=== PATIENT | female | born 1940 | race Caucasian/White ===

== ENCOUNTER 2017-10-28 06:42 | Inpatient (IN) | payer MEDICARE ==
[~2017-10-28] VITALS: Ht 152.4 cm; Wt 70.8 kg
[2017-10-28 06:46] VITALS: BP 141/62
--- NOTE | 2017-10-28 06:46 | NUR ---
77/F BIB grandaughter w c/o diarrhea, nausea and dizziness x5 days. Pt also c/o generalized weakness. Reports upper abd pain, BS active x4, abd soft, round, -tenderness. Denies vomiting, fever/chills. Denies CP/SOB. PMH: DM, HTN
--- NOTE | 2017-10-28 06:46 | NUR ---
PT AMBULATED TO ER BED 11
[2017-10-28] MEDS ORDERED: OMEP20TC12 PO (06:56)
[2017-10-28] MEDS ORDERED: DIT5 PO (06:56)
[2017-10-28] MEDS ORDERED: METO25TA PO (06:56)
[2017-10-28] MEDS ORDERED: ATOR40TA PO (06:56)
[2017-10-28] MEDS ORDERED: SITA100T8 PO (06:56)
[2017-10-28] MEDS ORDERED: BUDE1AER IH (06:56)
[2017-10-28] MEDS ORDERED: METF500T PO (06:56)
[2017-10-28] MEDS ORDERED: AMLO5TAB PO (06:56)
--- NOTE | 2017-10-28 07:00 | NUR ---
RECEIVED REPORT FROM VERNA RICHARDSON FOR CONTINUITY OF CARE
--- NOTE | 2017-10-28 07:00 | NUR ---
gave report to Sonja RICHARDSON
--- NOTE | 2017-10-28 08:08 | NUR ---
Patient being evaluated by physician at bedside.
[2017-10-28] MEDS ORDERED: NACL 0.9% 1,000 ML IV ONE (08:15)
[2017-10-28] MEDS ORDERED: LEVOFLOXACIN 500 MG/D5W PREMIX 100 ML IV ONE (08:15)
--- NOTE | 2017-10-28 08:54 | NUR ---
PT TO CT IN NO APEARENT DISTRESS WITH PLODDING MACHINE OPERATOR
--- NOTE | 2017-10-28 09:04 | NUR ---
PT BACK FROM CT IN NO APPARENT DISTRESS.
[2017-10-28 09:16] LABS: BASOPHILS % (AUTO) 0.3 % (0.0-2.0); EOSINOPHILS # (AUTO) 0.1 K/uL (0-0.4); EOSINOPHILS % (AUTO) 1.7 % (0.0-4.0); HEMATOCRIT 39.1 % (36-48); HEMOGLOBIN 13.3 g/dL (12.0-16.0); LYMPHOCYTES # (AUTO) 1.7 K/uL (2.5-16.5); LYMPHOCYTES % (AUTO) 20.3 % (20.5-51.1); MEAN CORPUSCULAR HEMOGLOBIN 30 pg (27-31); MEAN CORPUSCULAR HGB CONC 34 g/dL (33-37); MEAN CORPUSCULAR VOLUME 88.4 fL (80-94); MONOCYTES # (AUTO) 0.5 K/uL (0.8-1.0); MONOCYTES % (AUTO) 5.9 % (1.7-9.3); NEUTROPHILS % (AUTO) 71.8 % (42.2-75.2); PLATELET COUNT (AUTO) 190 K/uL (140-450); RED BLOOD CELL COUNT(AUTO) 4.42 MIL/uL (4.20-5.40); RED CELL DISTRIBUTION WIDTH 14.4 % (11.6-13.7); WHITE BLOOD COUNT (AUTO) 8.4 K/uL (4.8-10.8)
[2017-10-28 09:26] LABS: ANION GAP 14.4 (8-16); CARBON DIOXIDE 24.2 mmol/L (21-32); CHLORIDE 106 mmol/L (98-107); CREATININE 0.6 mg/dL (0.6-1.3); GLUCOSE 144 mg/dL (74-106); POTASSIUM 3.6 mmol/L (3.5-5.1); SODIUM SERUM 141 mmol/L (136-145); UREA NITROGEN, BLOOD 9 mg/dL (7-18)
[2017-10-28 09:31] LABS: APPEARANCE,URINE CLEAR (CLEAR); BILIRUBIN,URINE NEGATIVE (NEGATIVE); BLOOD, URINE NEGATIVE (NEGATIVE); COLOR,URINE YELLOW (YELLOW); LEUKOCYTE ESTERASE ,URINE NEGATIVE (NEGATIVE); NITRITE, URINE NEGATIVE (NEGATIVE); PH,URINE 5.5 (5.0-9.0); UGLUCOSE NEGATIVE (NEGATIVE)
[2017-10-28 09:32] LABS: ALBUMIN 3.8 g/dL (3.4-5.0); ASPARTATE AMINOTRANSFERASE 28 U/L (15-37); TOTAL BILIRUBIN 0.3 mg/dL (0.0-1.0)
[2017-10-28] MEDS: NACL 0.9% 1,000 ML IV SCH ×2 (10:09→20:09)
[2017-10-28] MEDS ORDERED: DOCUSATE SODIUM 100 MG GELCAP PO PRN (10:10)
[2017-10-28] MEDS ORDERED: HYDROcodone/APAP 7.5/325 MG 1 TAB PO PRN (10:10)
[2017-10-28] MEDS ORDERED: ONDANSETRON 4 MG/2 ML VIAL IM/IVP PRN (10:10)
[2017-10-28] MEDS ORDERED: MORPHINE SULFATE 2 MG/ML SYR IVP PRN (10:10)
[2017-10-28] MEDS ORDERED: ZOLPIDEM 5 MG TAB PO PRN (10:10)
[2017-10-28] MEDS ORDERED: ACETAMINOPHEN 325 MG TAB PO PRN (10:10)
[2017-10-28] MEDS ORDERED: LORazepam 0.5 MG TAB PO PRN (10:10)
--- NOTE | 2017-10-28 10:19 | NUR ---
DR BRAUN AT BEDSIDE
--- NOTE | 2017-10-28 10:30 | NUR ---
X RAY AT [facility], S
[2017-10-28] MEDS ORDERED: HYDR-3298 PO (10:32)
[2017-10-28 10:43] LABS: PROTHROMBIN TIME 9.9 secs (10.8-13.4)
[2017-10-28 10:44] LABS: BARBITURATE, URINE NEG. ng/ml (NEG <=200); BENZODIAZEPINE, URINE NEG. ng/mL (NEG <=200); CANNABINOID, URINE NEG. ng/mL (NEG <=50); COCAINE, URINE NEG. ng/mL (NEG <=300); OPIATE, URINE NEG. ng/mL (NEG <=2000); PHENCYCLIDINE SCREEN,URINE NEG. ng/mL (NEG <=25)
--- NOTE | 2017-10-28 10:55 | NUR ---
Patient will be admitted to care of DR LANGSTON. Admited to M/S. Will go to room 111B. Belongings list completed. Report to MARGARITA RICHARDSON .
[2017-10-28 10:56] LABS: FREE T4 (FREE THYROXINE) 0.92 ng/dL (0.76-1.46); MAGNESIUM 2.1 mg/dL (1.8-2.4); PHOSPHORUS 3.2 mg/dL (2.5-4.9); THYROID STIMULATING HORMONE 0.61 uIU/mL (0.34-3.74)
[2017-10-28 11:00] VITALS: BP 148/61
--- NOTE | 2017-10-28 11:00 | NUR ---
RECEIVED PT ON UNIT VIA WHEELCHAIR, PT IS AAOX4, AMBULATORY, SKIN IS INTACT, IV IS ON THE LEFT FA, PATENT, INTACT, FLUSHING WELL, NO S/S OF RESPIRATORY DISTRESS OR DISCOMFORT NOTED, PT IS ON ROOM AIR, DISCUSSED PLAN OF CARE WITH PT AND PT'S FAMILY, THEY VERBALIZED UNDERSTANDING, SAFETY/FALL PRECAUTIONS ARE IN PLACE, ORIENTED PT TO ROOM, WILL CONTINUE TO MONITOR.
--- NOTE | 2017-10-28 12:08 | NUR ---
REVIEWED EKG ORDER WITH DR CELINA BRAUN FOLLOWING DESCRIPTIONS NOTED VULNERABILITY ASSESSMENT ANALYST TO READ: Tia PEREA; REASON FOR EXAM: HTN
[2017-10-28] MEDS ORDERED: DEXTROSE 50% 50 ML SYR IVP PRN (13:45)
[2017-10-28] MEDS ORDERED: INSULIN LISPRO SLIDING SCALE 100 UNITS/ML VIAL SUBQ PRN (13:45)
[2017-10-28] MEDS ORDERED: METO50TE2 PO (13:49)
--- NOTE | 2017-10-28 15:18 | NUR ---
COLD ROLLING COORDINATOR IS AT PATIENT'S BEDSIDE AT THIS TIME PERFORMING EXAM.
[2017-10-28 16:00] VITALS: BP 151/60
[2017-10-28] MEDS: metFORMIN 500 MG TAB PO SCH (17:15)
[2017-10-28] MEDS: BLOOD GLUCOSE MONITORING 1 DEV DEV FS SCH ×2 (17:20→20:40)
--- NOTE | 2017-10-28 19:35 | NUR ---
ENDORSED PT TO MICROBIOLOGY COORDINATOR NURSE FOR CONTINUITY OF CARE. PT STABLE AT THIS TIME.
--- NOTE | 2017-10-28 19:36 | NUR ---
RECEIVED PT IN STABLE CONDITION FROM AM NURSE. ON MED SURG. AWAKE,ALERT AND ORIENTED X4. MONTENEGRIN SPEAKING. WITH NO C/O ANY DISCOMFORT AND PAIN NOTED. AMBULATORY TO THE BATHROOM. DENIES ANY DIARRHEA AT THIS TIME. PLAN OF CARE DISCUSSED AND VERBALIZED UNDERSTANDING . BED ON LOW POSITION. CALL LIGHT PLACED WITHIN EASY REACH. INSTRUCTED TO CALL FOR ANY ASSISTANCE NEEDED DURING THE NIGHT. WILL CONTINUE TO MONITOR.
[2017-10-28] MEDS: ATORVASTATIN 20 MG TAB PO SCH (20:39)
--- NOTE | 2017-10-28 20:40 | NUR ---
BLOOD SUGAR WAS CHECKED RESULT 112. NO INSULIN NEEDED. PROVIDED WITH SOME APPLE JUICE. WILL CONTINUE TO MONITOR.
--- NOTE | 2017-10-28 20:52 | NUR ---
PT IV ACCESS ON THE RT FA#20. INFILTRATED. DISCONTINUED. STARTED A NEW IV ACCESS ON THE RT HAND G#22. CLEAR AND PATENT.
--- NOTE | 2017-10-28 21:45 | NUR ---
PT/FAMILY INSTRUCTED IF PT STILL WITH DIARRHEA, WE NEED TO COLLECT. CONTAINER IN PLACED.
--- NOTE | 2017-10-28 23:00 | NUR ---
PT ASLEEP. NO S/S OF ANY DISCOMFORT NOTED. WILL CONTINUE TO MONITOR.
[2017-10-29] MEDS: NACL 0.9% 1,000 ML IV SCH ×2 (00:07→09:51)
[2017-10-29 00:14] VITALS: BP 131/58
--- NOTE | 2017-10-29 02:00 | NUR ---
PT SLEEPING WELL. NO SS/S OF ANY PAIN NOR DISCOMFORT NOTED. WILL CONTINUE TO MONITOR.
--- NOTE | 2017-10-29 04:30 | NUR ---
PT HAD A SMALL AMOUNT OF SOFT YELLOWISH BM THIS AM. NOT QUALIFIED FOR C DIFF SPECIMEN.
[2017-10-29] MEDS: BLOOD GLUCOSE MONITORING 1 DEV DEV FS SCH ×4 (06:26→20:24)
--- NOTE | 2017-10-29 06:26 | NUR ---
BLOOD SUGAR THIS AM 107. NO INSULIN NEEDED.
--- NOTE | 2017-10-29 06:50 | NUR ---
PT HAD ANOTHER LOOSE YELLOWISH STOOL IN MODERATE AMOUNT. SPECIMEN SEND TO LAB FOR C DIFF AND CULTURE.
[2017-10-29 07:07] LABS: BASOPHILS % (AUTO) 0.4 % (0.0-2.0); EOSINOPHILS # (AUTO) 0.2 K/uL (0-0.4); EOSINOPHILS % (AUTO) 3.4 % (0.0-4.0); HEMATOCRIT 36.5 % (36-48); HEMOGLOBIN 12.5 g/dL (12.0-16.0); LYMPHOCYTES # (AUTO) 2.4 K/uL (2.5-16.5); LYMPHOCYTES % (AUTO) 33.8 % (20.5-51.1); MEAN CORPUSCULAR HEMOGLOBIN 30 pg (27-31); MEAN CORPUSCULAR HGB CONC 34 g/dL (33-37); MEAN CORPUSCULAR VOLUME 87.8 fL (80-94); MONOCYTES # (AUTO) 0.6 K/uL (0.8-1.0); NEUTROPHILS # (AUTO) 3.9 K/uL (1.8-7.7); NEUTROPHILS % (AUTO) 54.4 % (42.2-75.2); PLATELET COUNT (AUTO) 174 K/uL (140-450); RED BLOOD CELL COUNT(AUTO) 4.15 MIL/uL (4.20-5.40); RED CELL DISTRIBUTION WIDTH 14.4 % (11.6-13.7); WHITE BLOOD COUNT (AUTO) 7.2 K/uL (4.8-10.8)
--- NOTE | 2017-10-29 07:08 | NUR ---
ASSUMED CONTINUITY OF CARE. NO SIGNS AND SYMPTOMS OF ACUTE DISTRESS NOTICED. INITIAL ASSESSMENT DONE. PT. GRANDDAUGHTER -SIMON ON BEDSIDE. KEEP PT. COMFORTABLE ON BED. EXPLAINED TO PT. AND PT. GRANDDAUGHTER -SIMON ABOUT DIAGNOSIS, PLAN OF CARE, PAIN MANAGEMENT TEACHING, USE OF CALL LIGHT/BED/TV/BATHROOM. VERBALIZED UNDERSTANDING. CALL LIGHT WITHIN REACH.
--- NOTE | 2017-10-29 07:10 | NUR ---
ENDORSED PT IN STABLE CONDITION TO AM NURSE FOR CONTINUITY OF CARE.
[2017-10-29 07:26] LABS: ANION GAP 12.6 (8-16); CARBON DIOXIDE 27.1 mmol/L (21-32); CHLORIDE 109 mmol/L (98-107); CREATININE 0.6 mg/dL (0.6-1.3); GLUCOSE 126 mg/dL (74-106); POTASSIUM 3.7 mmol/L (3.5-5.1); SODIUM SERUM 145 mmol/L (136-145); UREA NITROGEN, BLOOD 6 mg/dL (7-18)
[2017-10-29 07:37] LABS: MAGNESIUM 1.9 mg/dL (1.8-2.4); PHOSPHORUS 3.4 mg/dL (2.5-4.9)
--- NOTE | 2017-10-29 07:50 | NUR ---
DR. BRAUN CAME AND SPOKE TO PT. AND PT. GRANDDAUGHTER -SIMON AT BEDSIDE.
[2017-10-29 07:52] LABS: CHOL/HDL RATIO 2.4 (1-4.5)
[2017-10-29 08:00] VITALS: BP 145/58
[2017-10-29] MEDS: metFORMIN 500 MG TAB PO SCH ×2 (08:40→17:09)
--- NOTE | 2017-10-29 08:55 | NUR ---
PATIENT HAS BEEN SCREENED AND CATEGORIZED MODERATE NUTRITION RISK. PATIENT WILL BE SEEN WITHIN 3-5 DAYS OF ADMISSION. 10/31/17 11/02/17 Luis E Benitez MBA, RD
[2017-10-29] MEDS: OXYBUTYNIN 5 MG TAB PO SCH (09:35)
[2017-10-29] MEDS: METOPROLOL SUCCINATE 50 MG TABER PO SCH (09:36)
[2017-10-29] MEDS: LOSARTAN 50 MG TAB PO SCH (09:36)
[2017-10-29] MEDS: HYDROCHLOROTHIAZIDE 25 MG TAB PO SCH (09:36)
[2017-10-29] MEDS: amLODIPine 5 MG TAB PO SCH (09:36)
--- NOTE | 2017-10-29 11:27 | NUR ---
[employer] DIVISION MANAGER -ALEJANDRA CAME AND SPOKE TO PT. AT BEDSIDE.
[2017-10-29 12:00] VITALS: BP 155/98
--- NOTE | 2017-10-29 19:20 | NUR ---
BEDSIDE REPORT GIVEN TO JSUTYNA BINGHAM. IVF INFUSING WELL. IN STABLE CONDITION.
--- NOTE | 2017-10-29 19:21 | NUR ---
RECEIVED PATIENT AWAKE SITTING ON THE SIDE OF THE BED ACCOMPANIED BY FAMILY MEMBER. DISCUSSED PLAN OF CARE AND VERBALIZED UNDERSTANDING. BED IN LOW LOCKED POSITION. CALL LIGHT WITHIN REACH. WILL CONTINUE TO MONITOR.
[2017-10-29] MEDS: ATORVASTATIN 20 MG TAB PO SCH (20:24)
--- NOTE | 2017-10-29 21:05 | NUR ---
BS TAKEN AND RECORDED. NO INSULIN COVERAGE PER PROTOCOL. SCHEDULE MEDICATION GIVEN TOLERATED WELL. NO S/S OF DISTRESS NOTED AT THIS TIME. CALL LIGHT WITHIN REACH. WILL CONTINUE TO MONITOR.
[2017-10-30] VITALS: BP 122/56
--- NOTE | 2017-10-30 | NUR ---
V/S TAKEN AND RECORDED, PATIENT BACK TO SLEEP, NO S/S OF DISTRESS NOTED. CALL LIGHT WITHIN REACH. WILL CONTINUE TO MONITOR.
[2017-10-30] MEDS: NACL 0.9% 1,000 ML IV SCH (00:15)
--- NOTE | 2017-10-30 03:05 | NUR ---
SEEN PATIENT ASLEEP ON BED, NO S/S OF DISTRESS NOTED. CALL LIGHT WITHIN REACH.
[2017-10-30] MEDS: BLOOD GLUCOSE MONITORING 1 DEV DEV FS SCH ×2 (06:44→12:03)
--- NOTE | 2017-10-30 07:30 | NUR ---
GAVE REPORT TO AM SHIFT NURSE AT BEDSIDE FOR CONTINUITY OF CARE. PATIENT IN STABLE CONDITION.
--- NOTE | 2017-10-30 07:30 | NUR ---
REPORT RECEIVED FROM NIGHT FIT NURSE, PT AWAKE ALERT, REWSP EVEN UNLABORED, RA, SKIN WARM DRY COLOR WNL, PT DENIES PAIN OR DISCOMFORT, PLAN OF CARE REVIEWED, ALL SAFETY MEASURES IN PLACE, WILL CONTINUE TO MOTNIOR.
[2017-10-30 08:00] VITALS: BP 147/62
--- NOTE | 2017-10-30 08:53 | NUR ---
PT AT BEDSIDE
[2017-10-30] MEDS: amLODIPine 5 MG TAB PO SCH (09:02)
[2017-10-30] MEDS: OXYBUTYNIN 5 MG TAB PO SCH (09:02)
[2017-10-30] MEDS: LOSARTAN 50 MG TAB PO SCH (09:02)
[2017-10-30] MEDS: HYDROCHLOROTHIAZIDE 25 MG TAB PO SCH (09:03)
[2017-10-30] MEDS: metFORMIN 500 MG TAB PO SCH (09:03)
[2017-10-30] MEDS: METOPROLOL SUCCINATE 50 MG TABER PO SCH (09:03)
--- NOTE | 2017-10-30 09:08 | NUR ---
AM MEDS GIVEN, PT THADDEUS PILLS ONE BY ONE WELL WITHOUT PROBLEM, PT UP TO BATHROOM WITH NO ASSIST, SLOW STEADY GAIT OBSERVED, DENIES PAIN OR DISCOMFORT,
[2017-10-30] MEDS ORDERED: ONDA8ODT2 PO (10:43)
[2017-10-30 12:45] VITALS: BP 133/67
--- NOTE | 2017-10-30 13:07 | NUR ---
DC INSTRUCTION GIVEN AND EXPLAINED TO PT AND HER DAUGHTER, PT STATES IT'S OK FOR HER DAUGHTER TO TRANSLATE FOR HER, PT AND DAUGHTER EXPRESSED FULL UNDERSTANDING, ALL QUESTIONS ASKED AND ANSWERED, IV DC'D, CATH TIP INTACT, BLEEDING CONTROLLED, PT UP OUT OF BED WITHOUT PROBLEM.
--- NOTE | 2017-10-30 13:10 | NUR ---
DC HOME AMBULATORY WITH DAUGHTER AT THIS TIME
--- NOTE | 2017-10-30 15:51 | NUR ---
CM NOTE ER DR'S NOTE, H&P, PROGRESS NOTE, DISCHARGE SUMMARY, PATIENT'S VISIT REPORT FAXED TO [facility] [phone]
== END 2017-10-30 13:10 | disposition home or self-care (01) | DRG 392 ==
LOC: MED 06:42 → MTU 10:13
PROVIDERS: ADMIT General Practice; ATTEND General Practice
DX: A08.4 Viral intestinal infection, unspecified (principal); E11.65 Type 2 diabetes mellitus with hyperglycemia; I10 Essential (primary) hypertension; E78.5 Hyperlipidemia, unspecified; R39.15 Urgency of urination; E86.0 Dehydration; E11.51 Type 2 diabetes mellitus with diabetic peripheral angiopathy without gangrene; I70.202 Unspecified atherosclerosis of native arteries of extremities, left leg; K57.30 Diverticulosis of large intestine without perforation or abscess without bleeding; Z90.49 Acquired absence of other specified parts of digestive tract
CPT/HCPCS: 36415; 71045; 80048; 80053; 80305; 81003; 82150; 82948; 83036; 83690; 83735; 83880; 84100; 84439; 84443; 84484; 85025; 85610; 85730; 87040; 87045; 87070; 87081; 93005; 93925; 93970; 96365; 97116; 99285; J0696; J1815; J1956; J7030; J7060; Q0092

== ENCOUNTER 2017-11-07 17:56 | Emergency (ER) | payer MEDICARE ==
[~2017-11-07] VITALS: Ht 157.5 cm; Wt 68.0 kg
[~2017-11-07 17:56] MED LIST: AMLO5TAB PO; ATOR40TA PO; BUDE1AER IH; DIT5 PO; HYDR-3298 PO; METF500T PO; METO50TE2 PO; OMEP20TC12 PO; ONDA8ODT2 PO; SITA100T8 PO
[2017-11-07 18:10] VITALS: BP 147/70
[2017-11-07 19:47] LABS: BASOPHILS # (AUTO) 0.1 K/uL (0.00-0.22); BASOPHILS % (AUTO) 0.5 % (0.0-2.0); EOSINOPHILS # (AUTO) 0.1 K/uL (0-0.4); EOSINOPHILS % (AUTO) 0.7 % (0.0-4.0); HEMATOCRIT 36.6 % (36-48); HEMOGLOBIN 12.4 g/dL (12.0-16.0); LYMPHOCYTES # (AUTO) 1.9 K/uL (2.5-16.5); LYMPHOCYTES % (AUTO) 15.4 % (20.5-51.1); MEAN CORPUSCULAR HEMOGLOBIN 30 pg (27-31); MEAN CORPUSCULAR HGB CONC 34 g/dL (33-37); MEAN CORPUSCULAR VOLUME 87.6 fL (80-94); MONOCYTES # (AUTO) 0.5 K/uL (0.8-1.0); MONOCYTES % (AUTO) 4.3 % (1.7-9.3); NEUTROPHILS # (AUTO) 9.9 K/uL (1.8-7.7); NEUTROPHILS % (AUTO) 79.1 % (42.2-75.2); PLATELET COUNT (AUTO) 188 K/uL (140-450); RED BLOOD CELL COUNT(AUTO) 4.17 MIL/uL (4.20-5.40); RED CELL DISTRIBUTION WIDTH 14.3 % (11.6-13.7); WHITE BLOOD COUNT (AUTO) 12.5 K/uL (4.8-10.8)
[2017-11-07 20:02] LABS: ANION GAP 11.7 (8-16); CHLORIDE 96 mmol/L (98-107); CREATININE 0.6 mg/dL (0.6-1.3); GLUCOSE 115 mg/dL (74-106); POTASSIUM 3.7 mmol/L (3.5-5.1); SODIUM SERUM 134 mmol/L (136-145); UREA NITROGEN, BLOOD 10 mg/dL (7-18)
[2017-11-07 20:07] LABS: ALBUMIN 4.1 g/dL (3.4-5.0); ASPARTATE AMINOTRANSFERASE 20 U/L (15-37); LIPASE 156 U/L (73-393); TOTAL BILIRUBIN 0.6 mg/dL (0.0-1.0)
[2017-11-07 21:15] VITALS: BP 132/57
== END 2017-11-07 21:20 | disposition home or self-care (01) ==
LOC: MED 17:56
DX: K59.00 Constipation, unspecified (principal); E11.9 Type 2 diabetes mellitus without complications; I10 Essential (primary) hypertension; E78.5 Hyperlipidemia, unspecified; Z79.84 Long term (current) use of oral hypoglycemic drugs; Z79.899 Other long term (current) drug therapy; Z90.49 Acquired absence of other specified parts of digestive tract
CPT/HCPCS: 36415; 80053; 82948; 83690; 85025; 99285